=== PATIENT | female | born 1960 | race Caucasian/White ===

== ENCOUNTER 2024-03-31 18:07 | Emergency (ER) | payer OTHER, MEDICAID, SELFPAY ==
[2024-03-31] VITALS (17 sets, daily range): BP systolic 162–234; BP diastolic 77–106; PULSE 57–76; RESP 12–21; TEMP 36.7; O2SAT 90–98; BMI 34.1
--- NOTE | 2024-03-31 18:16 | DI.RAD.S_ITS ---
PROCEDURE: XR CHEST 1V INDICATIONS: chest pain TECHNIQUE: One view of the chest was acquired. COMPARISON: None. FINDINGS: Surgical changes and devices: None. Lungs and pleura: Lungs are clear. No pleural effusions or pneumothorax. Mediastinum: Mediastinal contours appear normal. Heart size is prominent. Bones and chest wall: No suspicious bony lesions. Overlying soft tissues appear unremarkable. IMPRESSION: Heart size is prominent. No acute pulmonary process. Dictated by: Deshaun Mujica M.D. on 03/31/2024 at 18:59 Approved by: Deshaun Mujica M.D. on 03/31/2024 at 18:59
--- NOTE | 2024-03-31 18:16 | EKG_ITS ---
[address] [address] Test Date: 2024-03-31 Pat Name: Salome Toribio Department: [facility] Room: Gender: Female Manager Validation: ELAINA CHRISTENSEN : 1960 Requested By: Order Number: [id number] Reading MD: Tao Iverson MD Measurements Intervals [place] Rate: 66 P: 22 [place]: 152 QRS: 29 QRSD: 100 T: 41 QT: 436 QTc: 457 Interpretive Statements Normal sinus rhythm Electronically Signed On 04-01-2024 8:50:37 PDT by Tao Iverson MD
[2024-03-31 18:24] LABS: Add Manual Diff / Slide Review NO; Basophils Absolute Auto 0 /uL (0-100); Basophils Percent Auto 0.8 % (0-2); Eosinophils Absolute Auto 100 /uL (0-450); Eosinophils Percent Auto 2.4 % (2-4); Lymphocytes Absolute Auto 2100 /uL (1100-4500); Lymphocytes Percent Auto 36.4 % (25-40); Mean Corpuscular HGB Conc 34.1 % (30-36); Mean Corpuscular Hemoglobin 30.4 PG (26-34); Mean Corpuscular Volume 89.2 fL (80-100); Monocytes Absolute Auto 600 /uL (0-900); Neutrophils Absolute Auto 3000 /uL (1500-7000); Neutrophils Percent Auto 50.4 % (50-75); Platelet Count 242 X10^3/uL (150-400); Red Blood Cell Count 4.59 X10^6/uL (4.0-5.2); Red Cell Distribution Width 13.5 % (11.6-14.8); White Blood Cell Count 5.9 X10^3/uL (4.5-11.0)
[2024-03-31 18:26] LABS: INR 0.9 (0.9-1.3); Prothrombin Time 10.6 SECONDS (9.4-12.5)
[2024-03-31 18:28] LABS: PTT Partial Thromboplastin Tim 33 SECONDS (25.1-36.5)
[2024-03-31 18:29] LABS: Alanine Aminotransferase 18 IU/L (<35); Albumin 4.5 g/dL (3.5-5.0); Albumin Globulin Ratio 1.3 (1.0-2.8); Alkaline Phosphatase 111 U/L (38-126); Aspartate Aminotransferase 24 IU/L (14-36); BUN Creatinine Ratio 30.6 (6-22); Bilirubin Total 0.7 mg/dL (0.2-1.3); Blood Urea Nitrogen 22 mg/dL (7-17); Calcium 9.3 mg/dL (8.4-10.2); Carbon Dioxide 24 mmol/L (22-32); Chloride 105 mmol/L (98-107); Creatine Kinase 82 U/L (30-135); Estimated Glomerular Filt Rate > 60 mL/min (>60); Globulin 3.4 g/dL (1.7-4.1); Glucose 119 mg/dL (80-110); HEMOLYSIS 18 (0-50); Lipase 87 U/L (23-300); Magnesium 1.9 mg/dL (1.6-2.3); Potassium 3.7 mmol/L (3.4-5.1); Sodium 137 mmol/L (137-145); Total Protein 7.9 g/dL (6.3-8.2)
[2024-03-31 18:42] LABS: NT-proBNP (BNP-Adult 18+) 97 pg/mL (<125); Troponin I < 0.012 ng/mL (0.01-0.034)
--- NOTE | 2024-03-31 18:43 | ED_ITS ---
HPI - Chest Pain General Chief Complaint: Chest Pain Stated Complaint: CP and HTN Time Seen by Provider: 03/31/24 18:43 Source: EMS Mode of arrival: EMS Limitations: language barrier History of Present Illness HPI narrative: (patient speaks Armenian, history via daughter at bedside) 63-year-old female seen in clinic with elevated blood pressure, did admit to chest discomfort earlier today, referred by ambulance for further evaluation apparently blood pressure was 205/100 in the office, she takes enalapril amongst her other medication and took an extra dose in clinic, received aspirin by EMS EN route. Chest discomfort not present now. Denies shortness of breath. Denies prior history of coronary artery disease, does recall remote stress testing 10 years ago, none since that time. Besides hypertension she has history of cholesterol problems, treated in the past but not recently, denies cardiac risk factors of diabetes and smoking and high blood and family. Related Data Allergies Allergy/AdvReac Type Severity Reaction Status Date / Time No Known Drug Allergies Allergy Verified 03/31/24 18:16 Review of Systems Review of Systems Narrative: see HPI Patient History Social History Smoking Status: Never smoker Smoking Status: Never smoker Substance Use Type: does not use Exam Narrative Exam Narrative: GENERAL: Well-developed patient, in mild distress. HEAD: Atraumatic. Normocephalic. EYES: Pupils equal round and reactive. Extraocular motions intact. No scleral icterus. No injection or drainage. ENT: Nose without bleeding, purulent drainage. Throat without erythema, tonsillar hypertrophy or exudate. Airway patent. NECK: Trachea midline. Non tender CARDIOVASCULAR: Regular rate and rhythm without murmurs, gallops, or rubs. RESPIRATORY: Clear to auscultation. Breath sounds equal bilaterally. No wheezes, rales, or rhonchi. GASTROINTESTINAL: Abdomen soft, non-tender, nondistended. EXTREMITIES: No edema or joint tenderness. BACK: Nontender without deformity or crepitance. No flank tenderness. NEURO: AOx3. Motor functions grossly nonfocal SKIN: No rash or erythema of visible areas Initial Vital Signs Initial Vital Signs: Vital Signs Pulse Oximetry 94 03/31/24 18:10 Course Orders Ordered: ED Orders 03/31/24 18:10 Complete Blood Count AUTO DIFF Stat Comprehensive Metabolic Panel Stat Lipase Stat Magnesium Stat NT-proBNP (BNP-Adult 18+) Stat PTT Partial Thromboplastin Dirk Stat Prothrombin Time INR Stat Troponin & CK Cardiac Panel Stat 03/31/24 18:16 XR chest 1V Stat EKG-12 Lead Stat 03/31/24 19:07 CT angio chest abdomen pelvis Stat 03/31/24 20:15 Trop I [Troponin I] Stat Discontinued Medications Morphine Sulfate (Morphine 4 Mg/Ml Inj) 4 mg IV NOW ONE Stop: 03/31/24 19:07 Last Admin: 03/31/24 19:13 Dose: 4 mg Documented By: AIDE Ondansetron HCl (Ondansetron 4 Mg/2 Ml Inj) 4 mg IV NOW ONE Stop: 03/31/24 19:07 Last Admin: 03/31/24 19:12 Dose: 4 mg Documented By: AIDE Vital Signs Vital signs: Vital Signs - 8 hr 03/31/24 18:30 03/31/24 18:32 03/31/24 18:32 Pulse Rate 62 66 Respiratory Rate 15 14 Blood Pressure 178/81 H Pulse Oximetry 95 92 03/31/24 18:45 03/31/24 18:45 03/31/24 19:00 Pulse Rate 65 Respiratory Rate 20 Blood Pressure 162/87 H 168/93 H Pulse Oximetry 92 03/31/24 19:00 03/31/24 19:16 03/31/24 19:16 Pulse Rate 59 L 66 Respiratory Rate 12 16 Blood Pressure 186/81 H Pulse Oximetry 95 93 03/31/24 19:32 03/31/24 19:33 03/31/24 19:33 Pulse Rate 62 65 Respiratory Rate 20 Blood Pressure 229/95 H Pulse Oximetry 98 94 03/31/24 19:46 03/31/24 19:46 03/31/24 20:00 Pulse Rate 64 Respiratory Rate 18 Blood Pressure 179/82 H 168/77 H Pulse Oximetry 93 03/31/24 20:00 03/31/24 20:15 03/31/24 20:15 Pulse Rate 66 69 Respiratory Rate 15 21 Blood Pressure 165/85 H Pulse Oximetry 93 91 03/31/24 20:30 03/31/24 20:30 03/31/24 20:45 Pulse Rate 61 Respiratory Rate 14 Blood Pressure 165/89 H 162/79 H Pulse Oximetry 93 03/31/24 20:45 03/31/24 21:00 03/31/24 21:00 Pulse Rate 63 61 Respiratory Rate 16 16 Blood Pressure 166/84 H Pulse Oximetry 90 L 93 03/31/24 21:15 03/31/24 21:15 Pulse Rate 57 L Respiratory Rate 14 Blood Pressure 166/87 H Pulse Oximetry 95 MDM - Chest Pain Lab Data Attestation: I reviewed the patient's lab results. 03/31/24 18:10 03/31/24 18:10 Labs: Lab Results 03/31/24 03/31/24 Range/Units 18:10 20:15 WBC 5.9 (4.5-11.0) X10^3/uL RBC 4.59 (4.0-5.2) X10^6/uL Hgb 14.0 (12.0-16.0) g/dL Hct 41.0 (36-46) % MCV 89.2 (80-100) fL MCH 30.4 (26-34) PG MCHC 34.1 (30-36) % RDW 13.5 (11.6-14.8) % Plt Count 242 (150-400) X10^3/uL Neut % (Auto) 50.4 (50-75) % Lymph % (Auto) 36.4 (25-40) % Mora % (Auto) 10.0 (3-14) % Eos % (Auto) 2.4 (2-4) % Baso % (Auto) 0.8 (0-2) % Neut # (Auto) 3000 (1313-8166) /uL Lymph # (Auto) 2100 (1551-4969) /uL Mora # (Auto) 600 (0-900) /uL Eos # (Auto) 100 (0-450) /uL Baso # (Auto) 0 (0-100) /uL PT 10.6 (9.4-12.5) SECONDS INR 0.9 (0.9-1.3) APTT 33 (25.1-36.5) SECONDS Sodium 137 (137-145) mmol/L Potassium 3.7 (3.4-5.1) mmol/L Chloride 105 (98-107) mmol/L Carbon Dioxide 24 (22-32) mmol/L BUN 22 H (7-17) mg/dL Creatinine 0.72 (0.52-1.04) mg/dL Estimated GFR > 60 (>60) mL/min BUN/Creatinine Ratio 30.6 H (6-22) Glucose 119 H (80-110) mg/dL Calcium 9.3 (8.4-10.2) mg/dL Magnesium 1.9 (1.6-2.3) mg/dL Total Bilirubin 0.7 (0.2-1.3) mg/dL AST 24 (14-36) IU/L ALT 18 (<35) IU/L Alkaline Phosphatase 111 (38-126) U/L Total Creatine Kinase 82 (30-135) U/L Troponin I < 0.012 < 0.012 (0.01-0.034) ng/mL NT-Pro-B Natriuret Pep 97 (<125) pg/mL Total Protein 7.9 (6.3-8.2) g/dL Albumin 4.5 (3.5-5.0) g/dL Globulin 3.4 (1.7-4.1) g/dL Albumin/Globulin Ratio 1.3 (1.0-2.8) Lipase 87 (23-300) U/L Imaging Data CT angiogram chest abdomen pelvis: Radiologist's Impression: Close Chest/Abdomen/Pelvis CTA (Signed) [place] - 03/31/24 Chest X-Ray (Signed) [place] - 03/31/24 [place] [address] CT Scan Report Signed Patient: Salome Toribio MR#: [id number] : 1960 Acct:[id number] Age/Sex: 63 / F Date of Service: 03/31/24 Loc: ED Accession Number: [id number] Procedure: CT angio chest abdomen pelvis Ordering Provider: Abe Solis MD PROCEDURE: CT ANGIO CHEST ABDOMEN PELVIS INDICATIONS: elev BP, chest pain pressure, eval aorta TECHNIQUE: Precontrast 5 mm thick sections acquired from the lung apices to the iliac crests. After the administration of intravenous contrast, 2.5 mm thick sections again acquired from the lung apices to the iliac crests. Maximum intensity projection (MIP) oblique sagittal and coronal reformats were then acquired. For radiation dose reduction, the following was used: automated exposure control. COMPARISON: None. FINDINGS: Image quality: Diagnostic. AORTA: No aortic aneurysm. No acute aortic syndrome. Mild atherosclerotic vascular calcifications. 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 CHEST: Lower Neck: No enlarged lymph nodes. Thyroid: No thyroid nodules which require sonographic evaluation. Axillae: No enlarged lymph nodes. Chest Wall: Unremarkable. Lungs and Pleura: No pneumothorax or pleural effusions. No focal pulmonary consolidations. Right upper lobe subpleural nodule measuring 3 mm. Additional nodule along the right minor fissure measuring 4 mm. Heart: Heart size is normal. No pericardial effusion. Thoracic Vessels: Pulmonary arteries demonstrate normal size. Mediastinum and [place]ore[place]: No enlarged lymph nodes. Esophagus: No wall thickening. No hiatal hernia. ABDOMEN: Liver: No solid mass. Gallbladder: No radiopaque gallstones or wall thickening. Biliary ducts: No biliary dilation. Pancreas: No ductal dilation. Spleen: Size is within normal limits. Adrenal Glands: No adrenal nodules. Kidneys and Ureters: No hydronephrosis. No solid mass. No complex renal cystic lesion which requires follow up. Stomach and Bowel: Normal colonic caliber, without significant wall thickening. Peritoneum: No abnormal intraperitoneal fluid. No free air. Ventral Wall: No hernia. Abdominal Nodes: No retroperitoneal or mesenteric adenopathy by size criteria. Vessels: Inferior vena cava is normal in size. PELVIS: Pelvic Organs: Unremarkable. Bladder: Unremarkable. Pelvic Nodes: No enlarged lymph nodes. Miscellaneous: No inguinal hernias are seen. Bones: Mild degenerative changes of the spine. IMPRESSION: 1. No acute aortic syndrome. 2. 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 3. Right upper lobe subpleural nodule measuring 3 mm and right minor fissure nodule measuring 4 mm. These are favored to represent benign intrapulmonary lymph nodes. Dictated by: Deshaun Mujica M.D. on 03/31/2024 at 19:35 Approved by: Deshaun Mujica M.D. on 03/31/2024 at 19:42 ECG Data Attestation: I personally reviewed and interpreted this ECG as follows: Interpretation: Normal sinus rhythm, rate 66. No obvious ST segment elevation changes. Flat T- waves lead 3 noted but upright in leads 2 and F contiguous inferior leads. [place] 152, QRS 100, QTC 457. MDM Narrative Medical decision making narrative: 63-year-old female with history of hypertension hyperlipidemia, no history of smoking, remote stress testing, no known CAD, had markedly elevated blood pressure in clinic, admitted to chest discomfort, here by EMS, given aspirin EN route, still having some chest discomfort. Screening EKG without obvious ischemic changes. IV morphine/Zofran. Labs pending. Chest x-ray increased cardiac silhouette, no cephalization, no wide mediastinum. GFR favorable. Initial troponin negative. CTA chest abdomen and pelvis ordered. Pain improved. Repeat troponin negative. Blood pressure while in the emergency department not particularly elevated, no blood pressure interventions. Further evaluation as an outpatient. Home with daughter. Return precautions discussed Critical Care Time Critical Care Time Critical Care Time: Yes Total Critical Care Time: 31 Attestation: The high probability of a clinically significant, sudden or life threatening deterioration of the [cardiopulmonary] system(s) required my full and direct attention, intervention and personal management. The aggregate critical care time was [31] minutes. This time is in addition to time spent performing reported procedures but includes the following: [x] Data Review and interpretation [x] Patient assessment and monitoring of vital signs [x] Documentation [x] Medication orders and management Discharge Plan Departure Patient Disposition: Home Clinical Impression: Chest pain, Pulmonary nodule, Elevated blood pressure reading Activity Restrictions/Additional Instructions: Elevated blood pressure reading in clinic today, improved without specific treatment here in the emergency department, chest discomfort noted. EKG without obvious ischemic changes, serial blood tests did not show evidence of heart attack today. CT angiogram of the chest abdomen and pelvis showed normal aorta and other chest abdomen and pelvic structures. Unclear cause of your chest discomfort but dangerous conditions not identified at this time. Blood pressure seemed improved, unclear why it was episodically elevated. Follow up for further testing and evaluation with your regular doctor in the next couple of days. Return earlier to this/nearest emergency department for any change worsening symptoms or any concerns prior. CT angiogram incidentally noted a lung nodule, this will need further workup as an outpatient, to make sure does not cancerous or of any concern. Referrals: Estela Mccall ARNP [Primary Care Provider] - Stand Alone Forms: Patient Portal/API
--- NOTE | 2024-03-31 19:07 | DI.CT.S_ITS ---
PROCEDURE: CT ANGIO CHEST ABDOMEN PELVIS INDICATIONS: elev BP, chest pain pressure, eval aorta TECHNIQUE: Precontrast 5 mm thick sections acquired from the lung apices to the iliac crests. After the administration of intravenous contrast, 2.5 mm thick sections again acquired from the lung apices to the iliac crests. Maximum intensity projection (MIP) oblique sagittal and coronal reformats were then acquired. For radiation dose reduction, the following was used: automated exposure control. COMPARISON: None. FINDINGS: Image quality: Diagnostic. AORTA: No aortic aneurysm. No acute aortic syndrome. Mild atherosclerotic vascular calcifications. 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 CHEST: Lower Neck: No enlarged lymph nodes. Thyroid: No thyroid nodules which require sonographic evaluation. Axillae: No enlarged lymph nodes. Chest Wall: Unremarkable. Lungs and Pleura: No pneumothorax or pleural effusions. No focal pulmonary consolidations. Right upper lobe subpleural nodule measuring 3 mm. Additional nodule along the right minor fissure measuring 4 mm. Heart: Heart size is normal. No pericardial effusion. Thoracic Vessels: Pulmonary arteries demonstrate normal size. Mediastinum and [place]ore[place]: No enlarged lymph nodes. Esophagus: No wall thickening. No hiatal hernia. ABDOMEN: Liver: No solid mass. Gallbladder: No radiopaque gallstones or wall thickening. Biliary ducts: No biliary dilation. Pancreas: No ductal dilation. Spleen: Size is within normal limits. Adrenal Glands: No adrenal nodules. Kidneys and Ureters: No hydronephrosis. No solid mass. No complex renal cystic lesion which requires follow up. Stomach and Bowel: Normal colonic caliber, without significant wall thickening. Peritoneum: No abnormal intraperitoneal fluid. No free air. Ventral Wall: No hernia. Abdominal Nodes: No retroperitoneal or mesenteric adenopathy by size criteria. Vessels: Inferior vena cava is normal in size. PELVIS: Pelvic Organs: Unremarkable. Bladder: Unremarkable. Pelvic Nodes: No enlarged lymph nodes. Miscellaneous: No inguinal hernias are seen. Bones: Mild degenerative changes of the spine. IMPRESSION: 1. No acute aortic syndrome. 2. 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 3. Right upper lobe subpleural nodule measuring 3 mm and right minor fissure nodule measuring 4 mm. These are favored to represent benign intrapulmonary lymph nodes. Dictated by: Deshaun Mujica M.D. on 03/31/2024 at 19:35 Approved by: Deshaun Mujica M.D. on 03/31/2024 at 19:42
[2024-03-31] MEDS: ONDANSETRON 4 MG/2 ML INJ IV (19:12)
[2024-03-31] MEDS: MORPHINE 4 MG/ML INJ IV (19:13)
[2024-03-31 20:56] LABS: Troponin I < 0.012 ng/mL (0.01-0.034)
== END 2024-03-31 21:35 | disposition home or self-care (01) ==
PROVIDERS: Emergency Provider Emergency Medicine; PCP Nurse Practitioner Family
DX: R07.9 Chest pain, unspecified (principal); R91.1 Solitary pulmonary nodule; I10 Essential (primary) hypertension
CPT/HCPCS: 36415; 71045; 71275; 74174; 80053; 82550; 83690; 83735; 83880; 84484; 85025; 85610; 85730; 93005; 93010; 96374; 96375; 99284; J2270; J2405; Q9967